=== PATIENT | female | born 1985 | race African-American/Black ===

== ENCOUNTER 2016-09-30 22:52 | Emergency (ER) | payer OTHER ==
[~2016-09-30] VITALS: Ht 157.5 cm; Wt 82.0 kg
[~2016-09-30 22:52] MED LIST: ALBU8I INH
[2016-09-30 22:53] VITALS: BP 136/87; PULSE 105; RESP 16; TEMP 100.3; O2SAT 98
[2016-09-30 23:29] LABS: BLOOD, URINE NEG (NEG); COMMENT (UR) CULT NOT INDICATED; CULTURE IF INDICATED CULT NOT INDICATED; GLUCOSE,URINE NEG (NEG); KETONE, URINE 10 mg/dL (NEG); MUCUS URINE MANY /lpf (OCC); NITRITE,URINE NEG (NEG); PH, URINE 5.5 (5.0-8.5); SQUAMOUS EPITHELIAL CELL URINE 3 /hpf (0-5); URINE COLOR YELLOW (YELLW/STRAW)
[2016-09-30] MEDS ORDERED: VENTAER INH (23:37)
[2016-10-01] MEDS ORDERED: ONDANSETRON HCL 4 MG/2 ML VIAL IV ONE (01:00)
[2016-10-01] MEDS ORDERED: SODIUM CHLOR 0.9% 1000 ML INJ 1,000 ML IV ONE (01:00)
[2016-10-01 01:07] VITALS: RESP 18; O2SAT 99
[2016-10-01] MEDS ORDERED: ACETAMINOPHEN 325 MG TAB PO ONE (01:15)
--- NOTE | 2016-10-01 01:25 | RADRPT ---
EXAM DATE/TIME: 10/01/2016 01:21 [place] COMPARISON: No previous studies available for comparison. INDICATIONS : Shortness of breath. MEDICAL HISTORY : None. SURGICAL HISTORY : None. ENCOUNTER: Initial ACUITY: 1 day PAIN SCORE: 0/10 LOCATION: Bilateral chest FINDINGS: A single view of the chest demonstrates the lungs to be symmetrically aerated without evidence of mas s, infiltrate or effusion. The cardiomediastinal contours are unremarkable. Osseous structures are intact. CONCLUSION: No evidence of acute cardiopulmonary disease. Patrick Ryan MD on October 01, 2016 at 1:23 Board Certified Radiologist. This report was verified electronically.
[2016-10-01 01:43] LABS: AUTOMATED NEUTROPHIL # 10.6 TH/MM3 (1.8-7.7); BASOPHIL # 0.1 TH/MM3 (0-0.2); BASOPHIL % 0.4 % (0.0-2.0); EOSINOPHIL % 0.4 % (0.0-4.0); HEMATOCRIT 32.5 % (35.0-46.0); HEMO FLAGS DIFF FINAL; LYMPH % 5.5 % (9.0-44.0); LYMPHOCYTE # 0.7 TH/MM3 (1.0-4.8); MEAN CELL VOLUME 60.5 FL (80.0-100.0); MEAN CORPUSCULAR HEMOGLOBIN 18.5 PG (27.0-34.0); MEAN CORPUSCULAR HGB CONC 30.6 % (32.0-36.0); MONO % 4.3 % (0.0-8.0); NEUT % 89.4 % (16.0-70.0); PLATELET COUNT 452 TH/MM3 (150-450); RED BLOOD COUNT 5.38 MIL/MM3 (4.00-5.30); RED CELL DISTRIBUTION WIDTH 23.9 % (11.6-17.2); WHITE BLOOD COUNT 11.9 TH/MM3 (4.0-11.0)
--- NOTE | 2016-10-01 01:46 | PD ---
HPI Chief Complaint: GI Complaint Time Seen by Provider: 00:50 Travel History International Travel<30 days: No Contact w/Intl Traveler<30days: No Traveled to known affect area: No History of Present Illness HPI The patient is a 31 year old female who presents to the [facility] emergency department with a history of reportedly beginning to feel ill 3 days ago. She reports that it began with cough, congestion, and rhinorrhea. She reports that her cough is nonproductive of yellow sputum. She reports that this morning she began to have nausea and vomiting. She reports that she's had nausea and vomiting 10, diarrhea 10 today. She denies having any blood in her stool or black or tarry stools. She denies eating on any antibiotic recently. She denies any recent foreign travel, sick contacts, or unusual food intake. She reports that she has had a subjective fever at home. She arrives with a temperature of 100.3 in the emergency department. On review of systems, the patient denies any neck pain, chest pain, shortness of breath, abdominal pain, urinary symptoms, or neurologic symptoms. LMP: Approximately one month ago. [facility] Past Medical History Narrative Medical The patient's past medical history is significant for acid reflux, gastritis, depression, attention deficit disorder, anxiety disorder, hypertension, and history of asthma. She does not have a local primary care physician. She reports that she recently moved to the area from [place]. Asthma: Yes Diminished Hearing: No Respiratory: Yes (BRONCHITIS, ASTHMA) Immunizations Current: No Tetanus Vaccination: Unknown Influenza Vaccination: No ?: Not : 4 Para: 0 Miscarriage: 4 Past Surgical History Narrative Surgical The patient's past surgical history is reportedly none. Social History Alcohol Use: Yes (occ) Tobacco Use: Yes (occasionally smokes) Substance Use: No Allergies-Medications (Allergen,Severity, Reaction): Coded Allergies: No Known Allergies (Unverified , 09/30/16) Reported Meds & Prescriptions Reported Meds & Active Scripts Active Reported Ventolin Hfa 18 GM Inh (Albuterol Sulfate) 90 Mcg/Act Aer 2 Puff INH Q4-6H PRN Review of Systems General / Constitutional: Positive: Fever Eyes: No: Visual changes HENT: Positive: Rhinorrhea, Congestion, No: Headaches Cardiovascular: No: Chest Pain or Discomfort Respiratory: Positive: Cough, No: Shortness of Breath Gastrointestinal: Positive: Nausea, Vomiting, Diarrhea, No: Abdominal Pain Genitourinary: No: Dysuria Musculoskeletal: No: Pain Skin: No Rash Neurologic: No: Weakness Psychiatric: No: Depression Endocrine: No: Polydipsia Hematologic/Lymphatic: No: Easy Bruising Physical Exam Narrative General: The patient is a well-developed well-nourished female in no acute distress. Head and Neck exam: Head is normocephalic atraumatic. Eyes: EOMI, pupils are equal round and reactive to light. Nose: Midline septum with pink mucous membranes Mouth: Dentition unremarkable. Moist mucus membranes. Posterior oropharynx is not erythematous. No tonsillar hypertrophy. Uvula midline. Airway patent. Neck: No palpable lymphadenopathy. No nuchal rigidity. No thyromegaly. Cardiovascular: Regular rate and rhythm without murmurs, gallops, or rubs. No pulse deficit to the extremities. Lungs: Clear to auscultation bilaterally. No wheezes, rhonchi, or rales. Abdomen: Soft, without tenderness to palpation in all 4 quadrants of the abdomen. No guarding, rebound, or rigidity. Negative [place] sign. Extremities: No clubbing, cyanosis, or edema. 2+ pulses in all 4 extremities. Back: No spinous process tenderness to palpation. No costovertebral angle tenderness to palpation. Neurologic Exam: Grossly nonfocal. Skin Exam: No rash noted. Intact skin that is warm and dry. Data Data Last Documented VS Vital Signs Date Time Temp Pulse Resp B/P Pulse Ox O2 Delivery O2 Flow Rate FiO2 10/01/16 01:07 18 99 Room Air 09/30/16 22:53 100.3 105 136/87 Orders Urinalysis - C+S If Indicated (09/30/16 23:13) Ed Urine Pregnancytest Poc (09/30/16 23:14) Complete Blood Count With Diff (10/01/16 00:53) Comprehensive Metabolic Panel (10/01/16 00:53) Lipase (10/01/16 00:53) Iv Access Insert/Monitor (10/01/16 00:53) Ecg Monitoring (10/01/16 00:53) Oximetry (10/01/16 00:53) Sodium Chlor 0.9% 1000 Ml Inj (Ns 1000 M (10/01/16 01:00) Ondansetron Inj (Zofran Inj) (10/01/16 01:00) Chest, Single Ap (10/01/16 01:11) Acetaminophen (Tylenol) (10/01/16 01:15) Sodium Chlorid 0.9% 500 Ml Inj (Ns 500 M (10/01/16 02:00) Labs Laboratory Tests Test 09/30/16 10/01/16 23:15 01:00 Urine Color YELLOW Urine Turbidity HAZY Urine pH 5.5 Urine Specific Ophelia 1.034 Urine Protein 30 mg/dL Urine Glucose (UA) NEG mg/dL Urine Ketones 10 mg/dL Urine Occult Blood NEG Urine Nitrite NEG Urine Bilirubin NEG Urine Urobilinogen LESS THAN 2.0 MG/DL Urine Leukocyte Esterase NEG Urine RBC LESS THAN 1 /hpf Urine WBC 1 /hpf Urine Squamous Epithelial 3 /hpf Cells Urine Mucus MANY /lpf Microscopic Urinalysis Comment CULT NOT INDICATED White Blood Count 11.9 TH/MM3 Red Blood Count 5.38 MIL/MM3 Hemoglobin 10.0 GM/DL Hematocrit 32.5 % Mean Corpuscular Volume 60.5 FL Mean Corpuscular Hemoglobin 18.5 PG Mean Corpuscular Hemoglobin 30.6 % Concent Red Cell Distribution Width 23.9 % Platelet Count 452 TH/MM3 Mean Platelet Volume 8.8 FL Neutrophils (%) (Auto) 89.4 % Lymphocytes (%) (Auto) 5.5 % Monocytes (%) (Auto) 4.3 % Eosinophils (%) (Auto) 0.4 % Basophils (%) (Auto) 0.4 % Neutrophils # (Auto) 10.6 TH/MM3 Lymphocytes # (Auto) 0.7 TH/MM3 Monocytes # (Auto) 0.5 TH/MM3 Eosinophils # (Auto) 0.0 TH/MM3 Basophils # (Auto) 0.1 TH/MM3 CBC Comment DIFF FINAL Differential Comment Sodium Level 139 MEQ/L Potassium Level 3.7 MEQ/L Chloride Level 104 MEQ/L Carbon Dioxide Level 28.6 MEQ/L Anion Gap 6 MEQ/L Blood Urea Nitrogen 14 MG/DL Creatinine 1.01 MG/DL Estimat Glomerular Filtration 77 ML/MIN Rate Random Glucose 111 MG/DL Calcium Level 9.4 MG/DL Total Bilirubin 0.5 MG/DL Aspartate Amino Transf 11 U/L (AST/SGOT) Alanine Aminotransferase 19 U/L (ALT/SGPT) Alkaline Phosphatase 94 U/L Total Protein 8.5 GM/DL Albumin 4.1 GM/DL Lipase 102 U/L [facility] Medical Decision Making Medical Screen Exam Complete: Yes Emergency Medical Condition: Yes Medical Record Reviewed: Yes Differential Diagnosis Viral versus bacterial gastroenteritis, versus electrolyte derangements, versus dehydration, versus , versus urinary tract infection, versus pneumonia , versus viral syndrome Narrative Course During the course of the patients emergency department visit, the patients history, examination, and differential diagnosis were reviewed with the patient. The patient had IV access obtained and blood work sent for analysis. The patient was placed on a paint roller assembler with oximetry and blood pressure monitoring. The patient was initially provided normal saline 1 L IV fluid bolus. Zofran 4 mg IV, acetaminophen 650 by mouth times one. A second 500 mL bag of normal saline was administered for mild dehydration. The patients laboratory studies were reviewed and remarkable for a white count of 11.9, hemoglobin 10, platelets 452 with 89.4 neutrophils, leukocytes 5.5, CMP is remarkable for creatinine of 1.01, glucose 111, AST 11, total protein 8.5 , urinalysis shows 30 protein, ketones 10. Radiology studies were reviewed and remarkable for a chest x-ray that shows no acute abnormality. The patient's bedside test was negative. The patient's symptoms are most consistent with a combination of gastroenteritis with an acute sinusitis/bronchitis. The patient will be discharged home with a prescription for doxycycline and Zofran. The patient is instructed to push fluids and rest. The patient was instructed to push fluids is with with an electrolyte rich solution such as Gatorade or Pedialyte. The patient is resting comfortably and feels better, is alert and in no distress. The patients results and examination findings were discussed with the patient. The repeat examination is unremarkable and benign. The history, exam, diagnostic testing, and current condition do not suggest any significant pathology to warrant further testing, continued ED treatment, admission, or surgical evaluation at this point. The vital signs have been stable. The patient does not have uncontrollable pain, intractable vomiting, or other significant symptoms. The patient's condition is stable and appropriate for discharge. The patient will pursue further outpatient evaluation with a primary care physician or other designated or consulting physician as indicated in the discharge instructions. The patient expressed understanding and was agreeable with this plan. Diagnosis Primary Impression: Acute sinusitis, unspecified Additional Impressions: Bronchitis Nausea, vomiting, and diarrhea Referrals: Melisa Villafana MD 2 days [facility] Patient Instructions: Acute Bronchitis (ED), Acute Diarrhea (ED), Acute Nausea and Vomiting (ED), General Instructions, Sinusitis (ED) Med/Other Pt SpecificInfo: Prescription(s) given Scripts Doxycycline Hyclate 100 Mg [id number] Mg PO BID #20 CAP Ref 0 Prov:Margareth Merino MD 10/01/16 Ondansetron Odt (Zofran Odt)4 Mg Tab4 Mg SL Q6HR PRN (Nausea/Vomiting) #7 TAB Ref 0 Prov:Margareth Merino MD 10/01/16 Disposition: 01 DISCHARGE HOME Condition: Stable Margareth Merino MD Oct 01, 2016 01:46
[2016-10-01 01:49] LABS: ALT (GPT) 19 U/L (10-53); ANION GAP 6 MEQ/L (5-15); AST (GOT) 11 U/L (15-37); BICARBONATE 28.6 MEQ/L (21.0-32.0); BLOOD UREA NITROGEN 14 MG/DL (7-18); CHLORIDE 104 MEQ/L (98-107); GLOMERULAR FILTRATION RATE 77 ML/MIN (>89); POTASSIUM 3.7 MEQ/L (3.5-5.1); SODIUM (NA) 139 MEQ/L (136-145)
[2016-10-01 01:52] LABS: ALKALINE PHOSPHATASE 94 U/L (45-117); TOTAL BILIRUBIN ADULT 0.5 MG/DL (0.2-1.0)
[2016-10-01] MEDS ORDERED: SODIUM CHLORID 0.9% 500 ML INJ 500 ML IV ONE (02:00)
[2016-10-01] MEDS ORDERED: DOXY100C PO (02:33)
[2016-10-01] MEDS ORDERED: ZOFR4TAB3 SL (02:33)
== END 2016-10-01 04:05 | disposition home or self-care (01) ==
LOC: NEPE 22:52
DX: J01.90 Acute sinusitis, unspecified (principal); J40 Bronchitis, not specified as acute or chronic; R19.7 Diarrhea, unspecified; R11.2 Nausea with vomiting, unspecified; F17.210 Nicotine dependence, cigarettes, uncomplicated
CPT/HCPCS: 71010; 80053; 81001; 83690; 84703; 85025; 96361; 96374; 99284; J2405; J7030; J7040